=== PATIENT | female | born 1945 | race Caucasian/White ===

== ENCOUNTER 2023-05-14 08:56 | Inpatient (IN) | payer MEDICARE ==
[2023-05-14] MEDS ORDERED: PROPOFOL 20 ML ONE (09:59)
[2023-05-14] MEDS ORDERED: Rocuronium Bromide 10 MG/ML (10ML VIAL) ONE ×2 (09:59→10:34)
[2023-05-14 10:04] LABS: #Eosinphils 0.3 thou/uL (0.0-0.7); #Monocytes 0.6 thou/uL (0.11-0.59); #Neutrophils 3.2 thou/uL (1.40-6.50); %Basophils 0.6 % (0.0-1.0); %Eosinophils 4.3 % (0.0-10.0); %Lymphocytes 33.4 % (21.0-51.0); %Monocytes 9.6 % (0.0-10.0); %Neutrophils 51.9 % (42.0-75.0); Hematocrit 37.7 % (36.0-47.0); Hemoglobin 11.9 g/dL (12.0-16.0); Mean Corpuscular HGB CONC 31.6 g/dL (32.0-36.0); Mean Corpuscular Hemoglobin 30.1 pg (27.0-31.0); Mean Corpuscular Volume 95.2 fl (78.0-98.0); Mean Platelet Volume 10.9 fL (7.4-10.4); Platelet Count 200 10x3/uL (130-400); RBC Distribution Width 14.5 % (11.5-14.5); Red Blood Cell (RBC) Count 3.96 mill/uL (4.20-5.40); White Blood Cell (WBC) Count 6.2 10x3/uL (4.8-10.8)
[2023-05-14 10:25] LABS: Anion Gap 14 mmol/L (10-20); BUN (Urea Nitrogen) 16 mg/dL (9.8-20.1); Calc. Creatinine Clearance 51 mL/min (70-130); Calcium 8.8 mg/dL (7.8-10.44); Carbon Dioxide 25 mmol/L (23-31); Chloride 108 mmol/L (98-107); Estimated GFR 56; Glucose 100 mg/dL (83-110); Potassium 4.1 mmol/L (3.5-5.1); Sodium 143 mmol/L (136-145)
[2023-05-14] MEDS ORDERED: Ondansetron PF 4 MG/2 ML Vial ONE ×3 (10:34→12:54)
[2023-05-14] MEDS ORDERED: diphenhydrAMINE 50 MG/ML VIAL ONE ×2 (10:34→11:14)
[2023-05-14] MEDS ORDERED: PROPOFOL 200 MG/20 ML VIAL ONE (10:34)
[2023-05-14] MEDS ORDERED: Labetalol HCl 100 MG/20 ML VIAL ONE ×2 (10:34→12:16)
[2023-05-14] MEDS ORDERED: ePHEDrine Sulfate 50 MG/10 ML VIAL ONE ×2 (10:34→11:56)
[2023-05-14] MEDS ORDERED: EPINEPHrine 1 MG/ML VIAL ONE (10:35)
[2023-05-14] MEDS ORDERED: fentaNYL PF 100 MCG/2 ML SYRINGE ONE (10:35)
[2023-05-14] MEDS ORDERED: Bupivacaine PF 0.5% 30 ML VIAL ONE (10:35)
[2023-05-14] MEDS ORDERED: Thrombin 5000 UNITS/5 ML VIAL ONE (10:35)
[2023-05-14] MEDS ORDERED: CEFAZOLIN 2 GM VIAL ONE (10:46)
[2023-05-14] MEDS ORDERED: Sodium Chloride 0.9% 100 ML ONE (10:46)
[2023-05-14] MEDS ORDERED: Ketorolac Tromethamine 30 MG/ML VIAL ONE (11:14)
[2023-05-14] MEDS ORDERED: SUGAMMADEX SODIUM 200 MG/2 ML VIAL ONE (11:14)
[2023-05-14] MEDS ORDERED: Morphine 2 MG/ML VIAL SLOW IVP PRN (12:06)
[2023-05-14] MEDS ORDERED: Acetaminophen/Codeine 30-300mg Tablet PO PRN (12:06)
[2023-05-14] MEDS ORDERED: Acetaminophen 325 MG TAB PO PRN (12:06)
[2023-05-14] MEDS ORDERED: Ondansetron PF 4 MG/2 ML Vial IVP PRN (12:06)
[2023-05-14] MEDS ORDERED: diphenhydrAMINE 50 MG/ML VIAL IVP PRN (12:06)
[2023-05-14] MEDS ORDERED: Bisacodyl 10 MG SUPP PR PRN (12:06)
[2023-05-14] MEDS ORDERED: fentaNYL 50 mcg/mL 1 mL Vial ONE ×3 (12:29→12:53)
[2023-05-14] MEDS ORDERED: Ondansetron HCl/PF 4 MG/2 ML Vial IVP PRN (12:33)
[2023-05-14] MEDS ORDERED: HYDROmorphone 0.5 MG/0.5 ML SYRINGE ONE ×2 (14:25→15:55)
[2023-05-14] MEDS: CEFAZOLIN 2 GM in Sodium Chloride 0.9% 100 ML IVPB SCH (17:54)
[2023-05-14] MEDS: Sodium Chloride 0.9% 1,000 ML IV SCH (17:54)
[2023-05-14 18:26] VITALS: BMI 26.1
[2023-05-14] MEDS ORDERED: FLU VACC QS2023(65UP)/MF59C/PF 60 MCG/0.5 ML SYRINGE IM ONE (19:15)
[2023-05-14] MEDS: Cyclobenzaprine 10 MG TAB PO PRN (19:45)
[2023-05-14] MEDS: Acetaminophen/Codeine 30-300mg Tablet PO PRN ×2 (19:46→23:17)
[2023-05-15] MEDS: CEFAZOLIN 2 GM in Sodium Chloride 0.9% 100 ML IVPB SCH (01:38)
[2023-05-15] MEDS: Sodium Chloride 0.9% 1,000 ML IV SCH ×2 (04:11→08:24)
[2023-05-15] MEDS: Alogliptin 6.25 MG TAB PO SCH (08:17)
[2023-05-15] MEDS: Cyclobenzaprine 10 MG TAB PO PRN (08:17)
[2023-05-15] MEDS: Acetaminophen/Codeine 30-300mg Tablet PO PRN (08:18)
[2023-05-15] MEDS: Losartan 25 MG TAB PO SCH (08:18)
[2023-05-15] MEDS ORDERED: Ketorolac Tromethamine 30 MG/ML VIAL IVP SCH (08:30)
[2023-05-15] MEDS: Ketorolac Tromethamine 30 MG/ML VIAL IVP SCH ×2 (13:08→17:46)
[2023-05-16] MEDS: Ketorolac Tromethamine 30 MG/ML VIAL IVP SCH ×3 (00:11→11:47)
[2023-05-16] MEDS: Sodium Chloride 0.9% 1,000 ML IV SCH ×2 (00:15→17:29)
[2023-05-16] MEDS: Alogliptin 6.25 MG TAB PO SCH (08:03)
[2023-05-16] MEDS: Losartan 25 MG TAB PO SCH (08:03)
[2023-05-17] MEDS: Sodium Chloride 0.9% 1,000 ML IV SCH (07:20)
[2023-05-17] MEDS: Losartan 25 MG TAB PO SCH (08:24)
[2023-05-17] MEDS: Alogliptin 6.25 MG TAB PO SCH (08:24)
[2023-05-17 09:25] VITALS: BP 176/73; TEMP 98.8
== END 2023-05-17 09:51 | disposition home or self-care (01) | DRG 520 ==
LOC: SDC 08:56 → T4-A 17:27 → OBSVTOIN 05-16 15:06
PROVIDERS: ADMIT Neurological Surgery; ATTEND Neurological Surgery
PROC: 01NB0ZZ Release Lumbar Nerve, Open Approach (ICD-10-PCS; principal; 2023-05-14)
PROC: 0SB20ZZ Excision of Lumbar Vertebral Disc, Open Approach (ICD-10-PCS; 2023-05-14)
DX: M51.16 Intervertebral disc disorders with radiculopathy, lumbar region (principal); E78.5 Hyperlipidemia, unspecified; F41.9 Anxiety disorder, unspecified; F32.A Depression, unspecified; E11.9 Type 2 diabetes mellitus without complications; G89.4 Chronic pain syndrome; M81.0 Age-related osteoporosis without current pathological fracture; Z90.710 Acquired absence of both cervix and uterus; Z90.49 Acquired absence of other specified parts of digestive tract; Z98.890 Other specified postprocedural states; Z82.49 Family history of ischemic heart disease and other diseases of the circulatory system; Z79.82 Long term (current) use of aspirin; Z79.899 Other long term (current) drug therapy; Z88.8 Allergy status to other drugs, medicaments and biological substances
CPT/HCPCS: 36415; 80048; 85025; 93005; 93010; C1713; J0171; J1170; J1200; J1885; J2405; J2704; J3010; J3490; J7050; S0020